=== PATIENT | male | born 1945 | race Caucasian/White ===

== ENCOUNTER 2023-07-23 07:01 | Day surgery (SDC) | payer MEDICARE ==
[2023-07-23 07:17] VITALS: BP 124/58
--- NOTE | 2023-07-23 07:20 | NUR ---
LE 0715: PT CONFIRMS THAT HE DID COMPLETE BOTH FLEETS ENEMAS AND STOPPED HIS ASA YESTERDAY.
[2023-07-23] MEDS ORDERED: ADULT LOW DOSE81 MG PO (07:23)
[2023-07-23] MEDS ORDERED: LISINOPRIL2.5 MG PO (07:23)
[2023-07-23] MEDS ORDERED: LUTEIN20 M1 PO (07:23)
[2023-07-23] MEDS ORDERED: AFRIN15 M1 NAS (07:24)
[2023-07-23] MEDS ORDERED: SIMVASTATIN20 MG PO (07:25)
[2023-07-23] MEDS ORDERED: MULTI VITAMIN1 EACH PO (07:25)
[2023-07-23] MEDS ORDERED: ATENOLOL50 MG PO (07:25)
--- NOTE | 2023-07-23 08:48 | NUR ---
LE 0832: PT IS BACK TO TREATMENT ROOM. LE 0843: PT IS CHECKED FOR BLEEDING. THERE IS NO BLOOD ON TOWEL. LE 0850: PT IS DC'D HOME AMBULATORY.
--- NOTE | 2023-07-23 14:36 | OR ---
[facility] [address] [place], [place] [address] Signed DATE OF OPERATION: 07/23/2023 SURGEON: Ryan Henry MD PREOPERATIVE DIAGNOSIS: Elevated PSA. POSTOPERATIVE DIAGNOSIS: Elevated PSA. NAME OF PROCEDURE: Transrectal ultrasound-guided biopsy of the prostate. ANESTHESIA: 10 mL of 2% lidocaine injection. INDICATIONS: Mr. Loredo is a very pleasant 78-year-old gentleman, who presents today to undergo a transrectal ultrasound-guided biopsy of the prostate for elevated PSA. On May 03, 2023, his PSA was noted to be 8.2. It was checked again later in the month and his PSA was 6.36. However, his percent free PSA has remained unfavorable at 9%. His digital rectal examination reveals mild enlargement, but no evidence of any palpable nodules. DESCRIPTION OF PROCEDURE: After informed consent was obtained, the patient was taken back to the operating room. We confirmed with the patient that he had undergone two fleets enemas and had been taking his oral antibiotics as instructed. He was placed in the left lateral decubitus position and a repeat digital rectal examination was performed. The rectal probe was then inserted into the patient's rectum and a transrectal ultrasound of the prostate was performed. Please see the findings below. Measurements of the prostate were then obtained, and the images were printed out. With the probe still in place, a spinal needle was advanced through the sheath and into the bilateral neurovascular bundles to achieve adequate anesthesia. 10 mL of 2% lidocaine was injected into both bundles without difficulty. I then began the prostate biopsy and obtained a total of six cores from each lobe of the prostate at the level of the lateral, apex mid and base levels. I then obtained a total of two cores from the right and left sides of the transition zone respectively. All 14 cores were placed in separate specimen containers. I reinserted my finger into the patient's rectum to apply pressure to the prostate. The patient was then placed in the upright sitting position and we placed a roll towel in the perineal area to apply pressure to the prostate. The procedure was then terminated. The patient Electronically Signed By: RYAN HENRY MD 07/23/23 1436 PATIENT NAME: QASIM LOREDO OPERATIVE REPORT DATE OF : 49 REPORT #: [id number] PHYSICIAN: RYAN HENRY MD PCP: MAYTE FREITAS MD REPORT IS CONFIDENTIAL AND NOT TO BE RELEASED WITHOUT AUTHORIZATION [facility] [address] [place] [address] Signed tolerated the procedure well without any complication. SPECIMENS: A total of 14 specimens were obtained today. Six cores were each obtained from the left and right lobe of the prostate, along with two cores from the bilateral transition zones. COMPLICATIONS: None. FINDINGS: 1. Digital rectal examination performed today revealed a 40 g prostate, mostly symmetric in size. There is diffuse enlargement present, however, no palpable nodules are noted. 2. Transrectal ultrasound revealed no evidence of abnormal nodules. Small bilateral adenomas are present, however, there is no evidence of any median lobe projecting into the bladder. 3. A mean prostate height is 4.80 cm, width is 4.64 cm and length is 5.03 cm, with a total prostate volume of 48.0 mL. DISPOSITION: I notified the patient today that he may see blood in his stool, urine, and ejaculate for the next few days and not be concerned. He was asked to finish out his oral antibiotics as prescribed. He has agreed to take it easy for the next 2 to 3 days and to avoid any heavy exertion. He will be contacted via telephone within the next 5 to 7 business days to discuss his pathology results. Ryan Henry MD AR/MODL /[id number] Copies: ~ Electronically Signed By: RYAN HENRY MD 07/23/23 1436 PATIENT NAME: QASIM LOREDO OPERATIVE REPORT DATE OF : 49 REPORT #: [id number] PHYSICIAN: RYAN HENRY MD PCP: MAYTE FREITAS MD REPORT IS CONFIDENTIAL AND NOT TO BE RELEASED WITHOUT AUTHORIZATION
--- NOTE | 2023-07-28 10:41 | PATH ---
[facility] [address] [place], [place] [address] Signed SPECIMEN(S): A LEFT LATERAL BASE PROSTATE BIOPSY SPECIMEN(S): B LEFT LATERAL MID PROSTATE BIOPSY SPECIMEN(S): C LEFT LATERAL APEX PROSTATE BIOPSY SPECIMEN(S): D LEFT MEDIAL BASE PROSTATE BIOPSY SPECIMEN(S): E LEFT MEDIAL MID PROSTATE BIOPSY SPECIMEN(S): F LEFT MEDIAL APEX PROSTATE BIOPSY SPECIMEN(S): G RIGHT MEDIAL BASE PROSTATE BIOPSY SPECIMEN(S): H RIGHT MEDIAL MID PROSTATE BIOPSY SPECIMEN(S): I RIGHT MEDIAL APEX PROSTATE BIOPSY SPECIMEN(S): J RIGHT LATERAL BASE PROSTATE BIOPSY SPECIMEN(S): K RIGHT LATERAL MID PROSTATE BIOPSY SPECIMEN(S): L RIGHT LATERAL APEX PROSTATE BIOPSY SPECIMEN(S): M LEFT TRANSITION ZONE SPECIMEN(S): N RIGHT TRANSITION ZONE CLINICAL HISTORY: Last PSA result: 6.36 on 05/26/23. PHOEBE result: Normal. R97.2 (elevated prostate specific antigen [PSA]) FINAL PATHOLOGIC DIAGNOSIS: A. Left lateral base, prostate core biopsy: - Benign prostatic tissue B. Left lateral mid, prostate core biopsy: - Benign prostatic tissue C. Left lateral apex, prostate core biopsy: - Benign prostatic tissue D. Left medial base, prostate core biopsy: - Benign prostatic tissue E. Left medial mid, prostate core biopsy: - Benign prostatic tissue with atrophy F. Left medial apex, prostate core biopsy: - Benign prostatic tissue with atrophy and chronic inflammation G. Right medial base, prostate core biopsy: - Benign prostatic tissue H. Right medial mid, prostate core biopsy: - Benign prostatic tissue with atrophy I. Right medial apex, prostate core biopsy: - Benign prostatic tissue with chronic inflammation J. Right lateral base, prostate core biopsy: - Benign prostatic tissue with atrophy and chronic inflammation K. Right lateral mid, prostate core biopsy: PATIENT NAME: QASIM GUZMÁN PATHOLOGY DATE OF : 49 REPORT #: [id number] PHYSICIAN: BONILLA PATHOLOGY PCP: MAYTE FREITAS MD REPORT IS CONFIDENTIAL AND NOT TO BE RELEASED WITHOUT AUTHORIZATION [facility] [address] [place], [place] [address] Signed - Benign prostatic tissue with atrophy and chronic inflammation L. Right lateral apex, prostate core biopsy: - Benign prostatic tissue with atrophy M. Left transition zone, prostate core biopsy: - Benign prostatic tissue N. Right transition zone, prostate core biopsy: - Benign prostatic tissue BRP MICROSCOPIC EXAMINATION: Histologic sections of all submitted blocks are examined by light microscopy. These findings, together with the gross examination, support the pathologic diagnosis. SPECIMEN SOURCE AND GROSS DESCRIPTION : The specimens are received in formalin in fourteen parts. They are labeled and designated "Gertrude" and further designated with the site listed below. They are all inked blue. A. SPECIMEN: Left lateral base prostate biopsy. PIECES: One. CORE LENGTH: 2.0 cm. All in (A1). B. SPECIMEN: Left lateral mid prostate biopsy. PIECES: One. CORE LENGTH: 1.7 cm. All in (B1). C. SPECIMEN: Left lateral apex prostate biopsy. PIECES: One. CORE LENGTH: 1.6 cm. All in (C1). D. SPECIMEN: Left medial base prostate biopsy. PIECES: One. CORE LENGTH: 1.8 cm. All in (D1). E. SPECIMEN: Left medial mid prostate biopsy. PIECES: Two. CORE LENGTH: 0.8-0.9 cm. All in (E1). F. SPECIMEN: Left medial apex prostate biopsy. PIECES: One. CORE LENGTH: 1.5 cm. All in (F1). G. SPECIMEN: Right medial base prostate biopsy. PIECES: One. CORE LENGTH: 1.4 cm. All in (G1). H. SPECIMEN: Right medial mid prostate biopsy. PIECES: One. CORE LENGTH: 2.0 cm. All in (H1). I. SPECIMEN: Right medial apex prostate biopsy. PIECES: Two. CORE LENGTH: 0.6-1.4 cm. All in (I1). J. SPECIMEN: Right lateral base prostate biopsy. PIECES: One. CORE LENGTH: 1.5 cm. All in (J1). K. SPECIMEN: Right lateral mid prostate biopsy. PIECES: One. CORE LENGTH: 1.2 PATIENT NAME: QASIM GUZMÁN PATHOLOGY DATE OF : 49 REPORT #: [id number] PHYSICIAN: BONILLA TINOCO PCP: MAYTE FREITAS MD REPORT IS CONFIDENTIAL AND NOT TO BE RELEASED WITHOUT AUTHORIZATION [facility] [address] [place], [place] [address] Signed cm. All in (K1). L. SPECIMEN: Right lateral apex prostate biopsy. PIECES: One. CORE LENGTH: 1.3 cm. All in (L1). M. SPECIMEN: Left transition zone. PIECES: One. CORE LENGTH: 1.8 cm. All in (M1). N. SPECIMEN: Right transition zone. PIECES: Two. CORE LENGTH: 1.5-1.8 cm. All in (N1). VB (under the direct supervision of a pathologist) The Gross Description was prepared using a voice recognition system. The report was reviewed for accuracy; however, sound-alike word errors, addition and/or deletions may occur. If there is any question about this report, please contact Client Services. ADDITIONAL NOTES: Immunohistochemical and/or in situ hybridization studies if performed in this case included appropriate positive controls that reacted as expected. This test was developed and its performance characteristics determined by [email or web address]. It has not been cleared or approved by the U.S. Food and Drug Administration. The FDA has determined that such clearance or approval is not necessary. This test is used for clinical purposes. It should not be regarded as investigational or for research. [email or web address] is certified under the Clinical Laboratory Improvement Amendments of 1988 (CLIA) as qualified to perform high complexity clinical laboratory testing. PERFORMING LABORATORY: Technical component was performed by [email or web address], [address] [place] [address] (CLIA# [id number]). Professional interpretation was performed by [facility], [address] [place] [address] (CLIA#: [id number]). Diagnostician: Amandeep Watters MD Pathologist Electronically Signed 07/28/2023 Copies: ~ PATIENT NAME: QASIM GUZMÁN PATHOLOGY DATE OF : 49 REPORT #: [id number] PHYSICIAN: BONILLA TINOCO PCP: MAYTE FREITAS MD REPORT IS CONFIDENTIAL AND NOT TO BE RELEASED WITHOUT AUTHORIZATION
== END 2023-07-23 08:50 | disposition home or self-care (01) ==
LOC: DS 07:01 → OPV-DS 08:00 → EDSTATUS 08:00 → OPS 08:00 → DS 08:50 → OPS 09:00 → EDSTATUS 09:00 → DS 09:00
PROVIDERS: ATTEND Urology
PROC: 0VB03ZX Excision of Prostate, Percutaneous Approach, Diagnostic (ICD-10-PCS; principal; 2023-07-23 08:00)
DX: N42.89 Other specified disorders of prostate (principal); N41.1 Chronic prostatitis; I10 Essential (primary) hypertension; E78.2 Mixed hyperlipidemia; I25.10 Atherosclerotic heart disease of native coronary artery without angina pectoris; Z79.82 Long term (current) use of aspirin; Z79.899 Other long term (current) drug therapy
CPT/HCPCS: 55700; 88305; G0416